=== PATIENT | female | born 1945 | race Two or more races ===

== ENCOUNTER 2019-11-14 23:31 | Emergency (ER) | payer MEDICARE ==
[~2019-11-14] VITALS: Ht 157.5 cm; Wt 63.5 kg
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
--- NOTE | 2019-11-14 23:56 | NUR ---
ED Nurse Note: blood collectd and sent to lab
[2019-11-15 00:06] VITALS: BP 119/41
--- NOTE | 2019-11-15 00:10 | NUR ---
ED Nurse Note: PT WENT TO CT VIA NADEGE
[2019-11-15 00:14] LABS: BASOPHILS % (AUTO) 1.5 % (0.0-2.0); EOSINOPHILS % (AUTO) 6.1 % (0.0-3.0); HEMATOCRIT 39.8 % (37.0-47.0); HEMOGLOBIN 13.6 G/DL (12.0-16.0); MEAN CORPUSCULAR VOLUME 89 FL (80-99); NEUTROPHILS % (AUTO) 34.3 % (45.0-75.0); PLATELET COUNT 246 K/UL (150-450); RED BLOOD COUNT 4.46 M/UL (4.20-5.40); RED CELL DISTRIBUTION WIDTH 12.1 % (11.6-14.8); WHITE BLOOD COUNT 8.2 K/UL (4.8-10.8)
[2019-11-15 00:17] LABS: ANION GAP 12 mmol/L (5-15); BLOOD UREA NITROGEN 23 mg/dL (7-18); CALCIUM 9.7 MG/DL (8.5-10.1); CARBON DIOXIDE 26 MMOL/L (21-32); CHLORIDE 101 MMOL/L (98-107); CREATININE 1.2 MG/DL (0.55-1.30); POTASSIUM 4.2 MMOL/L (3.5-5.1); SODIUM 139 MMOL/L (136-145)
[2019-11-15 00:21] LABS: ALANINE AMINOTRANSFERASE 16 U/L (12-78); ALBUMIN 3.8 G/DL (3.4-5.0); ALBUMIN/GLOBULIN RATIO 0.7 (1.0-2.7); ALKALINE PHOSPHATASE 109 U/L (46-116); ASPARTATE AMINO TRANSFERASE 20 U/L (15-37); BILIRUBIN,TOTAL 0.2 MG/DL (0.2-1.0)
--- NOTE | 2019-11-15 00:25 | NUR ---
ED Nurse Note: pt back from ct via [facility]
--- NOTE | 2019-11-15 00:48 | Diagnostic Imaging Report ---
Indication: Headache Technique: Contiguous 5 mm thick transaxial imaging of the head obtained in a Siemens Sensation [address] scanner. Soft tissue and bone windows generated. Automatic Exposure Control was utilized. Total Dose length Product (DLP): 1072.2mGycm CT Dose Index Volume (CTDIvol): 53.4 mGy Comparison: none Findings: The size and configuration of the cortical sulci, basal cisterns, and ventricles are within normal limits for age. There is no mass effect, midline shift, or edema identified. There is no evidence of acute hemorrhage or abnormal intra-axial or extra-axial fluid collections. There is an old depressed fracture of the left orbital floor with herniation of the intraorbital fat into the fracture defect. Mucosal thickening noted within the visualized paranasal sinuses. Impression: No mass effect, edema or acute bleed. Old fracture of the left orbital floor. Sinusitis The CT scanner at [facility] is accredited by the [employer] and the scans are performed using dose optimization techniques as appropriate to a performed exam including Automatic Exposure control.
[2019-11-15] MEDS ORDERED: Omnipaque 350 100ml vial INJ PRN (01:15)
--- NOTE | 2019-11-15 01:28 | NUR ---
ED Nurse Note: pt consent signed for ct contrast.
--- NOTE | 2019-11-15 01:34 | NUR ---
patient's daughter [phone]
--- NOTE | 2019-11-15 02:49 | Diagnostic Imaging Report ---
Indication: Chest pain Technique: Continuous helical transaxial imaging of the chest was obtained from the thoracic inlet to the upper abdomen during rapid intravenous contrast administration. Arterial phase of enhancement obtained. Coronal 2-D reformats were also obtained and maximum intensity projection images in multiple planes. Study obtained in a Siemens sensation [address] Automatic Exposure Control was utilized. Total Dose length Product (DLP): 250.[address] Dose Index Volume (CTDIvol): 20.6 mGy Comparison: None Findings: The pulmonary artery is well opacified and shows no filling defects. There is no adenopathy, pleural or pericardial effusions are identified. There is no aortic dissection or aneurysm identified within the chest. The lungs are clear. 1 cm hypodensity probably a cyst noted in the liver. A small hiatal hernia is present. Heterogeneity of the thyroid gland noted. There is minimal posterior basal atelectasis present. IMPRESSION: No evidence of pulmonary embolus, aortic dissection or aneurysm. Probable liver cyst. Other incidental findings as above. [facility] has communicated the preliminary results to the Emergency Department. Their findings are largely concordant with this report. The CT scanner at [facility] is accredited by the [employer] and the scans are performed using dose optimization techniques as appropriate to a performed exam including Automatic Exposure control.
[2019-11-15] MEDS ORDERED: GUAIFENESIN DM118 M1 ORAL (02:55)
--- NOTE | 2019-11-15 02:57 | NUR ---
left voicemail at [phone] pt's daughter, maritza.
[2019-11-15] MEDS ORDERED: Vancomycin 1.5 GM in NS 275 ML IVPB ONE (03:00)
[2019-11-15] MEDS ORDERED: Ampicillin/Sulbactam Sod 3 GM in NS 110 ML IVPB ONE (03:00)
[2019-11-15 03:15] VITALS: BP 123/61
[2019-11-15 03:30] VITALS: BP 119/41
--- NOTE | 2019-11-15 03:30 | NUR ---
ER DISCHARGE NOTE: Patient is cleared to be discharged per ERMD, pt is aox4, on room air, with stable vital signs. pt was given dc and prescription instructions, pt was able to verbalize understanding, pt id band and iv site removed without complications. pt is able to ambulate with steady gait. pt took all belongings.
== END 2019-11-15 03:30 | disposition home or self-care (01) ==
LOC: EMR 23:59
DX: J40 Bronchitis, not specified as acute or chronic (principal); S02.40DD Maxillary fracture, left side, subsequent encounter for fracture with routine healing; V49.9XXD Car occupant (driver) (passenger) injured in unspecified traffic accident, subsequent encounter
CPT/HCPCS: 36415; 70450; 71275; 80053; 84484; 85025; 85379; 99284; J7040; Q9967